=== PATIENT | female | born 1985 | race African-American/Black ===

== ENCOUNTER → 2017-02-14 | Outpatient (CLI) | payer OTHER ==
--- NOTE | 2017-02-14 12:20 | KCIC ---
5 view lumbar spine dated 02/14/2017. No comparison available. CLINICAL INDICATION: Low back pain for 2 weeks. Finding: AP, lateral, bilateral oblique and coned-down views of lumbosacral junction obtained. 5 nonrib-bearing vertebral levels. Vertebral body heights are maintained. Sagittal alignment is anatomic. Mild hypertrophic change of the lower lumbar apophyseal joints. Mild disc space narrowing at L4-L5. IMPRESSION: 1. No acute radiographic abnormality. 2. Mild lower lumbar spondylosis. Electronically signed by: Fuentes Juarez MD (02/14/2017 12:17 PM) [facility]
== END | disposition home or self-care (01) ==
LOC: KCIC 11:32
PROVIDERS: ATTEND Family Medicine
DX: M47.896 Other spondylosis, lumbar region (principal)
CPT/HCPCS: 72110

== ENCOUNTER 2017-04-18 08:34 | Emergency (ER) | payer OTHER ==
[~2017-04-18] VITALS: Ht 170.2 cm; Wt 69.4 kg
--- NOTE | 2017-04-18 08:56 | PHYS DOC ---
Past Medical History Past Medical History: No Pertinent History Adult General Chief Complaint Chief Complaint: DIZZY/LIGHT HEADED HPI HPI Patient is a 31 year old female who presents with dizziness. She states that the room spins and she feels nauseous when she lays flat in bed and continues when she sits up but it improves that she sits longer or stands up. It then returned when she tries to lay flat. No previous similar symptoms, no recent history of runny nose, ear pain, cough or congestion, no headaches or blurry vision, no focal weakness reported. She denies recent falls or trauma. She's not attempted any symptom controlling medications. She has been spotting but unsure if she could be . She takes oral control pills. Primary care physician is Dr. Filemon Hayden Review of Systems Review of Systems Constitutional: Denies fever or chills [] Eyes: Denies eye pain [] HENT: Denies nasal congestion or sore throat [] Respiratory: Denies cough or shortness of breath [] Cardiovascular: Denies chest pain GI: Denies abdominal pain, nausea, vomiting, or change in stools : Denies dysuria or hematuria [] Musculoskeletal: Denies back pain Integument: Denies rash Neurologic: Denies headache, focal weakness or sensory changes [] Current Medications Current Medications Current Medications Medications (Trade) Dose Ordered Sig/Sabine Start Time Stop Time Status Last Admin Dose Admin Meclizine HCl (Antivert) 25 mg 1X ONCE 04/18/17 09:00 04/18/17 09:04 DC 04/18/17 09:33 25 MG Sodium Chloride 1,000 ml @ 1,000 mls/hr 1X ONCE 04/18/17 09:00 04/18/17 09:59 DC 04/18/17 09:33 1,000 MLS/HR Allergies Allergies Allergies Coded Allergies Type Severity Reaction Last Updated Verified No Known Drug Allergies 04/18/17 No Physical Exam Physical Exam Constitutional: Well developed, well nourished, no acute distress, non-toxic appearance. [] HENT: Normocephalic, atraumatic, bilateral external ears normal, oropharynx moist, no oral exudates, nose normal.bilateral TMs dull Eyes: PERRLA, EOMI, conjunctiva normal, no discharge. [] Neck: Normal range of motion, no tenderness, supple, no stridor. [] Cardiovascular:Heart rate regular with regular rhythm, no murmur [] Lungs & Thorax: Bilateral breath sounds clear to auscultation, no wheeze or crackles Abdomen: Bowel sounds normal, soft, no tenderness, no masses, no pulsatile masses. [] Skin: Warm, dry, no erythema, no rash. [] Back: No tenderness, no CVA tenderness. [] Extremities: No tenderness, no cyanosis, no clubbing, ROM intact, no edema. [] Neurologic: Alert and oriented X 3, normal motor function, normal sensory function, no focal deficits noted.CN II-XII intact, normal cerebellar finger-to- nose, normal gait Psychologic: Affect normal, judgement normal, mood normal. [] Current Patient Data Vital Signs Vital Signs Date Time Temp Pulse Resp B/P (MAP) Pulse Ox O2 Delivery O2 Flow Rate FiO2 04/18/17 11:58 68 18 99 04/18/17 08:56 98.4 127/72 (90) Room Air 98.4 Lab Values Laboratory Tests Test 04/18/17 09:05 04/18/17 09:20 04/18/17 09:40 POC Urine HCG, Qualitative Hcg negative (Negative) Urine Collection Type Unknown Urine Color Yellow Urine Clarity Clear Urine pH 6.0 Urine Specific [place] >=1.030 Urine Protein Negative mg/dL (NEG-TRACE) Urine Glucose (UA) Negative mg/dL (NEG) Urine Ketones (Stick) Negative mg/dL (NEG) Urine Blood Moderate (NEG) Urine Nitrite Negative (NEG) Urine Bilirubin Negative (NEG) Urine Urobilinogen Dipstick 0.2 mg/dL (0.2 mg/dL) Urine Leukocyte Esterase Trace (NEG) Urine RBC 0 /HPF (0-2) Urine WBC 1-4 /HPF (0-4) Urine Squamous Epithelial Cells Occ /LPF Urine Transitional Epithelial Cells Mod /LPF Urine Bacteria Few /HPF (0-FEW) White Blood Count 8.2 x10^3/uL (4.0-11.0) Red Blood Count 4.52 x10^6/uL (3.50-5.40) Hemoglobin 14.5 g/dL (12.0-15.5) Hematocrit 42.2 % (36.0-47.0) Mean Corpuscular Volume 93 fL (79-100) Mean Corpuscular Hemoglobin 32 pg (25-35) Mean Corpuscular Hemoglobin Concent 34 g/dL (31-37) Red Cell Distribution Width 11.9 % (11.5-14.5) Platelet Count 231 x10^3/uL (140-400) Neutrophils (%) (Auto) 75 % (31-73) H Lymphocytes (%) (Auto) 21 % (24-48) L Monocytes (%) (Auto) 3 % (0-9) Eosinophils (%) (Auto) 1 % (0-3) Basophils (%) (Auto) 1 % (0-3) Neutrophils # (Auto) 6.1 x10^3uL (1.8-7.7) Lymphocytes # (Auto) 1.7 x10^3/uL (1.0-4.8) Monocytes # (Auto) 0.3 x10^3/uL (0.0-1.1) Eosinophils # (Auto) 0.0 x10^3/uL (0.0-0.7) Basophils # (Auto) 0.1 x10^3/uL (0.0-0.2) Sodium Level 139 mmol/L (136-145) Potassium Level 3.8 mmol/L (3.5-5.1) Chloride Level 104 mmol/L (98-107) Carbon Dioxide Level 26 mmol/L (21-32) Anion Gap 9 (6-14) Blood Urea Nitrogen 12 mg/dL (7-20) Creatinine 0.7 mg/dL (0.6-1.0) Estimated GFR (Cockcroft-Gault) 118.1 Glucose Level 92 mg/dL (70-99) Calcium Level 9.1 mg/dL (8.5-10.1) Laboratory Tests 04/18/17 09:40 Laboratory Tests 04/18/17 09:40 EKG EKG 76 bpm, sinus, normal axis, normal intervals, no ST elevation or depression, nonischemic T waves, interpreted by me[] Radiology/Procedures Radiology/Procedures [] Course & Med Decision Making Course & Med Decision Making Pertinent Labs and Imaging studies reviewed. (See chart for details) Pt given IV NS bolus, po meclizine, ua/ucg/labs/ekg ordered. Her symptoms improved and I counseled patient on home therapies and need to follow-up if symptoms persist. Return precautions given and patient was discharged with meclizine Dragon Disclaimer Dragon Disclaimer This electronic medical record was generated, in whole or in part, using a voice recognition dictation system. Departure Departure Impression: Primary Impression: Dizziness Disposition: 01 HOME, SELF-CARE Condition: IMPROVED Referrals: Concepcion HAYDEN MD (PCP) Scripts Meclizine Hcl (MECLIZINE HCL) 25 Mg Tablet 25 MG PO PRN TID Y for dizziness, #20 TAB dizziness Prov: JERAMIE DE LEÓN MD 04/18/17 JERAMIE DE LEÓN MD Apr 18, 2017 08:56
[2017-04-18] MEDS ORDERED: MECLIZINE HCL 12.5 MG TABLET. PO ONE (09:00)
[2017-04-18] MEDS ORDERED: IV NORMAL SALINE 1000ML BAG 1,000 ML IV ONE (09:00)
--- NOTE | 2017-04-18 09:13 | EKG ---
[facility] [address] [place] [address] Test Date: 2017-04-18 Test Time: 09:11:06 Pat Name: NELIDA RODRÍGUEZ Department: Room: Gender: F [employer]: : 1985 Requested By: JERAMIE DE LEÓN Order Number: [id number] Reading MD: Measurements Intervals [place] Rate: 76 P: 58 IN: 148 QRS: 0 QRSD: 78 T: 39 QT: 364 QTc: 414 Interpretive Statements SINUS RHYTHM LEFTWARD AXIS INCOMPLETE RIGHT BUNDLE BRANCH BLOCK QRS(T) CONTOUR ABNORMALITY CANNOT RULE OUT ANTEROSEPTAL MYOCARDIAL DAMAGE RI6.01 Unconfirmed report No previous ECG available for comparison
[2017-04-18 09:35] LABS: BILIRUBIN,URINE NEGATIVE (NEG); GLUCOSE,URINE NEGATIVE (NEG); NITRITE,URINE NEGATIVE (NEG); PROTEIN,URINE NEGATIVE (NEG-TRACE); UROBILINOGEN,URINE 0.2 mg/dL (0.2 mg/dL)
[2017-04-18 09:49] LABS: BASO # 0.1 x10^3/uL (0.0-0.2); BASO % 1 % (0-3); EOS % 1 % (0-3); HEMATOCRIT 42.2 % (36.0-47.0); HEMOGLOBIN 14.5 g/dL (12.0-15.5); LYMPH # 1.7 x10^3/uL (1.0-4.8); LYMPH % 21 % (24-48); MEAN CORPUSCULAR HEMOGLOBIN 32 pg (25-35); MEAN CORPUSCULAR HGB CONC 34 g/dL (31-37); MEAN CORPUSCULAR VOLUME 93 fL (79-100); MONO % 3 % (0-9); NEUT % 75 % (31-73); PLATELET COUNT 231 x10^3/uL (140-400); RED BLOOD COUNT 4.52 x10^6/uL (3.50-5.40); RED CELL DISTRIBUTION WIDTH 11.9 % (11.5-14.5); WHITE BLOOD COUNT 8.2 x10^3/uL (4.0-11.0)
[2017-04-18 09:58] LABS: CALCIUM 9.1 mg/dL (8.5-10.1); CREATININE 0.7 mg/dL (0.6-1.0); GFR 118.1; POTASSIUM 3.8 mmol/L (3.5-5.1)
[2017-04-18 09:59] LABS: BACTERIA,URINE FEW /HPF (0-FEW); RBC,URINE 0 /HPF (0-2); SQUAMOUS EPITHELIAL CELL,UR OCC /LPF
[2017-04-18] MEDS ORDERED: MECL25TA3 PO (11:33)
[2017-04-18 11:58] VITALS: BP 119/73
== END 2017-04-18 12:24 | disposition home or self-care (01) ==
LOC: ER 08:34
DX: R42 Dizziness and giddiness (principal); R11.0 Nausea
CPT/HCPCS: 36415; 80048; 81001; 81025; 85025; 87086; 93005; 96360; 99285; J7030; J8597